=== PATIENT | male | born 1955 | race Caucasian/White ===

== ENCOUNTER 2017-06-24 05:42 | Inpatient (IN) | payer BC ==
[2017-06-24] MEDS ORDERED: THROMBIN 5000 UNIT VIAL (06:40)
[2017-06-24] MEDS ORDERED: GELATIN SIZE 100 SPONGE (06:40)
[2017-06-24] MEDS: CEFAZOLIN 2 GM/50 ML (PMX) 50 ML IVPB (06:43)
[2017-06-24] MEDS: LACTATED RINGER'S 1,000 ML IV* ×2 (06:43→06:44)
[2017-06-24] MEDS ORDERED: FENTAnyl 50 MCG/ML VIAL (06:55)
[2017-06-24] MEDS ORDERED: LABETALOL HCL 20MG INJ (07:35)
[2017-06-24] MEDS: POLYMYXIN/BACITRACIN 1L IRRIG (08:04)
[2017-06-24] MEDS: BUPIVACAINE 0.25% (MPF) 30 ML INJ (08:04)
[2017-06-24] MEDS ORDERED: ROCURONIUM 50 MG INJ (08:30)
[2017-06-24] MEDS ORDERED: ALBUTEROL 0.083% (NEB) 2.5 MG/3 ML AMP HHN (08:30)
[2017-06-24] MEDS ORDERED: PROPOFOL 20 ML (08:30)
[2017-06-24] MEDS ORDERED: SUGAMMADEX SODIUM 200 MG/2 ML VIAL IV (08:30)
[2017-06-24] MEDS ORDERED: DIPHENHYDRAMINE 50 MG INJ IV (08:30)
[2017-06-24] MEDS ORDERED: SUCCINYLCHOLINE CHLORIDE 100 MG/5 ML SYG IV (08:30)
[2017-06-24] MEDS ORDERED: ONDANSETRON 4 MG INJ IV (08:30)
[2017-06-24] MEDS ORDERED: HYDROmorphONE (0.2 MG/ML) 10ML SYG IV (08:30)
[2017-06-24] MEDS ORDERED: METOCLOPRAMIDE 10 MG INJ IV (08:30)
[2017-06-24] MEDS ORDERED: LIDOCAINE 100 MG SYRINGE (08:30)
[2017-06-24] MEDS: DEXTROSE 5%-0.45% NACL 1,000 ML IV ×3 (09:01→21:00)
[2017-06-24] MEDS: HYDROmorphONE (0.2 MG/ML) 10ML SYG IV ×3 (09:01→09:38)
[2017-06-24] MEDS: FENTAnyl 50 MCG/ML VIAL IV ×3 (09:02→09:38)
[2017-06-24] MEDS: MEPERIDINE 25 MG INJ IV (09:02)
[2017-06-24] MEDS ORDERED: BETHANECHOL 25 MG TAB PO (09:30)
[2017-06-24] MEDS ORDERED: HYDROCODONE/APAP (5/325) TAB PO ×2 (09:30)
[2017-06-24] MEDS ORDERED: PROCHLORPERAZINE 10 MG TAB PO (09:30)
[2017-06-24] MEDS ORDERED: AL HYDROX/MG HYDROX/SIMETH 30 ML CUP PO (09:30)
[2017-06-24] MEDS ORDERED: ZOLPIDEM 5 MG TAB PO (09:30)
[2017-06-24] MEDS ORDERED: NALOXONE (0.4 MG/ML) INJ IV (09:30)
[2017-06-24] MEDS ORDERED: NACL 0.9% 3 ML SYG IV (09:30)
[2017-06-24] MEDS ORDERED: DIAZEPAM 5 MG/ML SYG IM (09:30)
[2017-06-24] MEDS ORDERED: ACETAMINOPHEN 325 MG TAB PO (09:30)
[2017-06-24] MEDS ORDERED: TRIMETHOBENZAMIDE 100 MG/ML VIAL IM (09:30)
[2017-06-24] MEDS ORDERED: DIPHENHYDRAMINE 50 MG CAP PO (09:30)
[2017-06-24] MEDS: HYDROmorphONE 0.2 MG/ML PCA IV (09:54)
[2017-06-24] MEDS: DIAZEPAM 5 MG TAB PO (10:28)
[2017-06-24] MEDS: CEPASTAT LOZENGE MT (10:29)
[2017-06-24] MEDS ORDERED: ALPRAZOLAM 0.5 MG TAB PO (11:30)
[2017-06-24] MEDS: CYCLOBENZAPRINE 10 MG TAB PO ×2 (13:06→20:32)
[2017-06-24] MEDS: CEFAZOLIN 1 GM/50 ML (PMX) 50 ML IVPB ×2 (13:07→18:01)
[2017-06-24] MEDS: ONDANSETRON 4 MG INJ IV ×2 (14:30→19:19)
[2017-06-24] MEDS: FLUTICASONE 0.05% 16 GM NAS SPRAY NASAL (20:32)
[2017-06-24] MEDS: SALMETEROL/FLUTICASONE 100/50 INHA INH (20:32)
[2017-06-24] MEDS: RANITIDINE 150 MG TAB PO (20:32)
[2017-06-25] MEDS: CEFAZOLIN 1 GM/50 ML (PMX) 50 ML IVPB ×2 (00:59→05:17)
[2017-06-25] MEDS: CEPASTAT LOZENGE MT (05:23)
[2017-06-25] MEDS: DEXTROSE 5%-0.45% NACL 1,000 ML IV ×2 (05:24→15:01)
[2017-06-25] MEDS: HYDROmorphONE 0.2 MG/ML PCA IV (05:26)
[2017-06-25 05:34] LABS: HEMATOCRIT 39.7 % (42.0-52.0); HEMOGLOBIN 13.8 g/dl (14.0-18.0)
[2017-06-25 05:48] LABS: ANION GAP 15 (8-16); BLOOD UREA NITROGEN 11 mg/dl (7-20); CALCIUM 8.9 mg/dl (8.4-10.2); CARBON DIOXIDE 27 mmol/L (21-31); CHLORIDE 104 mmol/L (97-110); CREATININE 0.95 mg/dl (0.61-1.24); GLUCOSE 104 mg/dl (70-220); POTASSIUM 3.8 mmol/L (3.5-5.1); SODIUM 142 mmol/L (135-144)
[2017-06-25] MEDS ORDERED: BETHANECHOL 25 MG TAB PO (08:00)
[2017-06-25] MEDS: DOCUSATE SODIUM 100 MG CAP PO (08:51)
[2017-06-25] MEDS: FERROUS SULFATE (EC) 325 MG TAB PO ×2 (08:51→12:21)
[2017-06-25] MEDS: CYCLOBENZAPRINE 10 MG TAB PO ×2 (08:52→12:22)
[2017-06-25] MEDS: HYDROCHLOROTHIAZIDE 25 MG TAB PO (08:53)
[2017-06-25] MEDS: MONTELUKAST 4 MG CHEW TAB PO (08:54)
[2017-06-25] MEDS: FELODIPINE (ER) 10 MG TAB PO (08:54)
[2017-06-25] MEDS: ASCORBIC ACID 500 MG TAB PO (08:55)
[2017-06-25] MEDS: RANITIDINE 150 MG TAB PO (08:55)
[2017-06-25] MEDS: LISINOPRIL 5 MG TAB PO (08:56)
[2017-06-25] MEDS: SALMETEROL/FLUTICASONE 100/50 INHA INH (09:01)
[2017-06-25] MEDS: FLUTICASONE 0.05% 16 GM NAS SPRAY NASAL (09:01)
== END 2017-06-25 15:15 | disposition home or self-care (01) | DRG 520 ==
LOC: REC 05:42 → MS1 10:05
PROC: 01NB0ZZ Release Lumbar Nerve, Open Approach (ICD-10-PCS; principal; 2017-06-24 07:06)
PROC: 0SB00ZZ Excision of Lumbar Vertebral Joint, Open Approach (ICD-10-PCS; 2017-06-24 07:06)
PROC: 4A11X4G Monitoring of Peripheral Nervous Electrical Activity, Intraoperative, External Approach (ICD-10-PCS; 2017-06-24 07:06)
DX: M47.26 Other spondylosis with radiculopathy, lumbar region (principal); M67.48 Ganglion, other site; I10 Essential (primary) hypertension; J45.909 Unspecified asthma, uncomplicated; K21.9 Gastro-esophageal reflux disease without esophagitis; M54.31 Sciatica, right side; E78.5 Hyperlipidemia, unspecified; Z87.891 Personal history of nicotine dependence
CPT/HCPCS: 72020; 80048; 85014; 85018; 86850; 86900; 86901; 86920; 97116; 97163; 97530